=== PATIENT | female | born 1955 | race Caucasian/White ===

== ENCOUNTER → 2020-03-29 | Outpatient (CLI) | payer OTHER | LOC: RAD 07:43 | PROVIDERS: ATTEND Pediatrics | DX: J45.20 Mild intermittent asthma, uncomplicated (principal); J98.4 Other disorders of lung ==

== ENCOUNTER → 2020-03-31 | Outpatient (CLI) | payer OTHER | LOC: CAT 14:04 | PROVIDERS: ATTEND Pediatrics | DX: Z12.2 Encounter for screening for malignant neoplasm of respiratory organs (principal); K76.89 Other specified diseases of liver; Z87.891 Personal history of nicotine dependence ==